=== PATIENT | male | born 2000 | race Caucasian/White ===

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

== ENCOUNTER 2021-07-31 19:28 | Emergency (ER) | payer BC ==
[2021-07-31] MEDS ORDERED: Diphtheria,Pertussis(Acell),Tetanus Vaccine 0.5 ML Syringe IM ONE (19:36)
[2021-07-31] MEDS ORDERED: Bacitracin Oint 1 GM U/D Packet TOP ONE (19:37)
[2021-07-31 19:52] VITALS: BP 128/110; PULSE 110
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
[2021-07-31] MEDS ORDERED: Iopamidol 755 MG/ML 500 ML Multipack Bottle IVPUSH STA (20:18)
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
[2021-07-31 20:25] LABS: BLOOD UREA NITROGEN,BUN 9 mg/dL (7.0-18.0); CARBON DIOXIDE,CO2 24.3 mmol/L (21.0-32.0); CHLORIDE,CL 102 mmol/L (98-107); GLUCOSE RANDOM 88 mg/dL (74-106); POTASSIUM,K 3.4 mmol/L (3.5-5.1); SODIUM,NA 141 mmol/L (136-148)
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
[2021-07-31] MEDS ORDERED: Ketorolac 30 MG/ML SDV IVPUSH ONE (21:15)
[2021-07-31] MEDS ORDERED: fentaNYL 50 MCG/ML SDV IVPUSH ONE (21:15)
[2021-07-31] MEDS ORDERED: Cyclobenzaprine 10 MG Tab PO ONE (21:16)
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
== END 2021-07-31 21:55 | disposition home or self-care (01) ==
LOC: MW.ED 19:28
DX: S06.0X1A Concussion with loss of consciousness of 30 minutes or less, initial encounter (principal); S33.6XXA Sprain of sacroiliac joint, initial encounter; M25.551 Pain in right hip; Z23 Encounter for immunization; V86.99XA Unspecified occupant of other special all-terrain or other off-road motor vehicle injured in nontraffic accident, initial encounter; Y92.828 Other wilderness area as the place of occurrence of the external cause
CPT/HCPCS: 36415; 70450; 71045; 71260; 72125; 73552; 74177; 80053; 81001; 85025; 90471; 90715; 96374; 99284; A9270; J1885; Q9967

== ENCOUNTER 2023-03-07 23:15 | Emergency (ER) | payer OTHER, BC ==
[2023-03-08] MEDS ORDERED: Diphtheria,Pertussis(Acell),Tetanus Vaccine 0.5 ML Syringe IM ONE (00:43)
[2023-03-08] MEDS ORDERED: Lidocaine 1% 5 ML VIAL INJECT ONE (01:18)
[2023-03-08] MEDS ORDERED: ceFAZolin 1 GM Vial IM ONE (03:20)
[2023-03-08] MEDS ORDERED: Lidocaine 1% PF 2 ML SDV INJECT ONE (03:32)
[2023-03-08 03:41] VITALS: BP 125/73; PULSE 78
== END 2023-03-08 04:00 | disposition home or self-care (01) ==
LOC: MW.ED 23:15
DX: S62.622B Displaced fracture of middle phalanx of right middle finger, initial encounter for open fracture (principal); J45.909 Unspecified asthma, uncomplicated; Z23 Encounter for immunization; W31.89XA Contact with other specified machinery, initial encounter
CPT/HCPCS: 12001; 73130; 90471; 90715; 96372; 99283; J0690; 12011; J3490